=== PATIENT | female | born 1950 | race Caucasian/White ===

== ENCOUNTER → 2018-07-15 10:27 | Outpatient (CLI) | payer MEDICARE, MEDICAID, SELFPAY ==
--- NOTE | 2018-07-15 | DI.US.S_ITS ---
PROCEDURE: US CAROTID DOPPLER BI INDICATIONS: RETINAL HEMORRHAGE TECHNIQUE: Color and pulse Doppler interrogation was performed of both carotid systems, with image documentation and velocity measurements. COMPARISON: None. FINDINGS: Stenosis calculations are based on SRU (Society of Radiologists in Ultrasound) criteria. Right side: Brachial blood pressure: 182/102 mm Hg. Common carotid artery peak systolic velocity: 65 cm/sec. Internal carotid artery peak systolic velocity: 66 cm/sec. Internal carotid artery end diastolic velocity: 24 cm/sec. External carotid artery peak systolic velocity: 74 cm/sec. ICA/CCA peak systolic ratio: 1.0 Plasencia scale imaging description: Moderate scattered plaque. Percent internal carotid artery stenosis: Less than 50%. Vertebral artery: Flow direction is antegrade. Left side: Brachial blood pressure: 175/100 mm Hg. Common carotid artery peak systolic velocity: 83 cm/sec. Internal carotid artery peak systolic velocity: 102 cm/sec. Internal carotid artery end diastolic velocity: 40 cm/sec. External carotid artery peak systolic velocity: 96 cm/sec. ICA/CCA peak systolic ratio: 1.2. Plasencia scale imaging description: Moderate scattered plaque. Percent internal carotid artery stenosis: Less than 50%. Vertebral artery: Flow direction is antegrade. IMPRESSION: Less than 50% bilateral internal carotid artery stenosis. Hypertension at time of examination. Dictated by: Erwin Milian [facility] Interpreted: Mata Morales MD on 07/15/2018 at 12:12 Approved by: Mata Morales M.D. on 07/15/2018 at 14:50
== END ==
PROVIDERS: PCP Family Medicine; Visit Provider Family Medicine
DX: H35.60 Retinal hemorrhage, unspecified eye (principal); I65.23 Occlusion and stenosis of bilateral carotid arteries
CPT/HCPCS: 93880

== ENCOUNTER → 2018-11-16 09:20 | Outpatient (CLI) | payer MEDICARE, MEDICAID, SELFPAY ==
--- NOTE | 2018-11-16 | DI.RAD.S_ITS ---
PROCEDURE: XR HIP W PEL IF DONE LT MIN 4V INDICATIONS: BILATERAL HIP PAIN TECHNIQUE: AP pelvis with lateral view(s) of the bilateral hip(s), 3 views total. COMPARISON: None. FINDINGS: Bones: No fractures or dislocations. Pelvic ring appears intact. No suspicious bony lesions. Soft tissues: The visualized bowel gas pattern is normal. No suspicious soft tissue calcifications. IMPRESSION: Normal for age, source of current bilateral hip pain symptoms is not seen. Dictated by: Mata Morales M.D. on 11/16/2018 at 10:25 Approved by: Mata Morales M.D. on 11/16/2018 at 10:26
== END ==
PROVIDERS: PCP Family Medicine; Visit Provider Family Medicine
DX: M85.852 Other specified disorders of bone density and structure, left thigh (principal); Z78.0 Asymptomatic menopausal state; E07.9 Disorder of thyroid, unspecified; N28.9 Disorder of kidney and ureter, unspecified; M25.552 Pain in left hip; M25.551 Pain in right hip; Z82.62 Family history of osteoporosis; Z87.891 Personal history of nicotine dependence
CPT/HCPCS: 73522; 77080

== ENCOUNTER → 2018-12-23 09:00 | Outpatient (CLI) | payer MEDICARE, MEDICAID, SELFPAY ==
--- NOTE | 2018-12-23 | DI.US.S_ITS ---
PROCEDURE: US ABD AORTA ANEURYSM SCREEN INDICATIONS: RENAL CELL CARCINOMA TECHNIQUE: Real time scanning was performed of the aorta and iliac arteries, with image documentation. COMPARISON: None. FINDINGS: Aorta: Proximal aortic diameter measures 2.5 cm. Mid-aorta measures 1.5 cm. Distal aortic diameter is obscured by overlying bowel gas. Iliac arteries: Obscured by overlying bowel gas. IMPRESSION: Limited exam with distal aorta as well as iliacs not visualized. Proximal and mid aorta are within normal limits. Dictated by: Alva Navarrete M.D. on 12/23/2018 at 13:31 Approved by: Alva Navarrete M.D. on 12/23/2018 at 13:34
--- NOTE | 2018-12-23 | DI.RAD.S_ITS ---
PROCEDURE: XR LUMBAR SPINE 2-3V INDICATIONS: BILATERAL SCIATICA TECHNIQUE: 3 views of the lumbar spine were acquired. COMPARISON: [facility], , L-SPINE 2-3 VIEWS, 05/26/2016, 9:14. FINDINGS: Bones: 5 [id number] vertebrae are present. Again noted is grade 1 anterolisthesis of L4 on L5, unchanged from 2016 study. Chronic appearing mild anterior wedge compression deformity at L1 level is again seen also unchanged from prior study. Degenerative disc disease through all visualized lower thoracic and lumbar spine is seen more prominent at L5-S1 level.. No vertebral body compression fractures. No suspicious bony lesions. Soft tissues: Overlying bowel gas pattern is normal. No suspicious soft tissue calcifications. IMPRESSION: Degenerative disc disease throughout lumbar spine with stable grade 1 anterolisthesis of L4 on L5. No acute compression fracture. Dictated by: Guero Hwang M.D. on 12/23/2018 at 9:49 Approved by: Guero Hwang M.D. on 12/23/2018 at 9:50
--- NOTE | 2018-12-23 | DI.RAD.S_ITS ---
PROCEDURE: XR HIP W PEL IF DONE RT 2V INDICATIONS: RIGHT HIP PAIN TECHNIQUE: AP pelvis with lateral view(s) of the right hip(s). COMPARISON: [facility], CR, XR HIP W PEL IF DONE MARIOLA 3TO4V, 11/16/2018, 9:43. FINDINGS: Bones: No fractures or dislocations. Pelvic ring appears intact. Mild symmetric appearing bilateral hip joint osteoarthritis is seen with joint space narrowing and subchondral sclerosis. No evidence of avascular necrosis. No suspicious bony lesions. Soft tissues: The visualized bowel gas pattern is normal. No suspicious soft tissue calcifications. 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 Dictated by: Guero Hwang M.D. on 12/23/2018 at 9:46 Approved by: Guero Hwang M.D. on 12/23/2018 at 9:49
== END ==
PROVIDERS: PCP Family Medicine; Visit Provider Family Medicine
DX: M25.551 Pain in right hip (principal); M16.0 Bilateral primary osteoarthritis of hip; M51.16 Intervertebral disc disorders with radiculopathy, lumbar region; M43.16 Spondylolisthesis, lumbar region; G89.29 Other chronic pain; C64.9 Malignant neoplasm of unspecified kidney, except renal pelvis; Z13.6 Encounter for screening for cardiovascular disorders
CPT/HCPCS: 72100; 73502; 76706

== ENCOUNTER → 2019-03-07 09:11 | Outpatient (CLI) | payer MEDICARE, MEDICAID, SELFPAY ==
--- NOTE | 2019-03-07 | DI.MRI.S_ITS ---
PROCEDURE: MR LUMBAR SPINE WO CON INDICATIONS: Spinal stenosis, lumbar region TECHNIQUE: Noncontrast sagittal T1 spin echo and T2 fast echo, sagittal STIR, axial T1 and T2 fast spin echo through the lumbar spine. In cases with scoliosis, additional coronal T2 fast spin echo may be performed. COMPARISON: [facility], MR, L-SPINE WITHOUT CONTRAST, 06/19/2016, 10:35. FINDINGS: Image quality: Excellent. Alignment and Curvature: Trace anterolisthesis L4 on 5, stable compared to the prior study. Otherwise normal bony alignment. Bone Marrow: Small Schmorl's nodes present in the visible lower thoracic and upper lumbar spine. Mild type I Modic changes posteriorly at the L2-3 disc level, similar compared to prior. No acute vertebral body fractures. Spinal Cord: Conus medullaris terminates at the L1 -2 level. Visualized cord demonstrates normal signal and size. Paraspinous Soft Tissues: No paravertebral masses. Atrophic right kidney replaced by multiple T2 hyperintense cysts. No significant change compared to prior. T11-12: Chronic circumferential disc osteophyte results in mild to moderate central canal stenosis. T12-L1: Normal. L1-L2: Mild circumferential disc bulge with slight encroachment on the right lateral recess, similar extent compared to prior. Mild central canal stenosis, stable. L2-L3: Moderate circumferential disc bulge with slight extrusion of disc material caudal to the disc level. Extension of disc material into both neural foramina. Similar morphology compared to prior study. Moderate facet arthropathy results in mild to moderate bilateral foraminal narrowing, right worse than left, stable. Overall moderate central canal stenosis, slightly worse compared to the prior study. L3-L4: Mild circumferential disc bulge. Moderate facet hypertrophy and ligamentum flavum hypertrophy. Mild to moderate bilateral foraminal narrowing, stable.. L4-L5: Extensive bilateral facet arthropathy/ligamentum flavum hypertrophy. Moderate posterior disc bulge and disc uncovering secondary to anterolisthesis. This results in severe central canal stenosis, similar extent compared to the prior study. Moderate right, and severe left foraminal narrowing are unchanged. L5-S1: Disc height loss and endplate spurring are present. Moderate posterior disc osteophyte complex and moderate facet hypertrophy are unchanged. There is encroachment on both lateral recesses, left worse than right. Moderate to severe bilateral foraminal narrowing are present. IMPRESSION: 1. Slight progression of central canal stenosis at the L2-3 level due to disc bulge and ligamentum flavum hypertrophy. 2. Stable severe central canal stenosis at L4-5 and stable severe left foraminal narrowing. 3. Moderate to severe bilateral foraminal narrowing in the lower lumbar spine secondary to facet hypertrophy and disc osteophyte complex (particularly at L5-S1). 4. Right renal atrophy and cystic change, chronic. Dictated by: Marjorie العراقي M.D. on 03/07/2019 at 12:20 Approved by: Marjorie العراقي M.D. on 03/07/2019 at 12:42
== END ==
PROVIDERS: PCP Family Medicine; Visit Provider Family Medicine
DX: M48.062 Spinal stenosis, lumbar region with neurogenic claudication (principal); M48.07 Spinal stenosis, lumbosacral region; N26.1 Atrophy of kidney (terminal)
CPT/HCPCS: 72148

== ENCOUNTER → 2019-07-11 10:46 | Outpatient (CLI) | payer MEDICARE, MEDICAID, SELFPAY ==
--- NOTE | 2019-07-11 | DI.MG.S_ITS ---
BILATERAL DIGITAL SCREENING MAMMOGRAM 3D/2D WITH CAD: 07/11/2019 CLINICAL: Routine screening. Family history of breast cancer. Comparison is made to exams dated: 02/11/2010 mammogram, 05/12/2008 mammogram, 10/17/2005 mammogram - [facility], and 02/16/2004 mammogram - [facility]. The tissue of both breasts is predominantly fatty. Current study was also evaluated with a Computer Aided Detection (CAD) system. No significant masses, calcifications, or other findings are seen in either breast. There has been no significant interval change. IMPRESSION: NEGATIVE There is no mammographic evidence of malignancy. A 1 year screening mammogram is recommended. This exam was interpreted at Station ID: [id number]. NOTE: For mammograms, a report in lay terms will be sent to the patient. Approximately 15% of breast malignancies will not be visualized mammographically. In the management of a palpable breast mass, a negative mammogram must not discourage biopsy of a clinically suspicious lesion. Electronically Signed By: Tejas burt/reginaldo:07/11/2019 12:52:30 letter sent: Normal Exam ACR BI-RADS Category 1: Negative 3341F
== END ==
PROVIDERS: PCP Family Medicine; Visit Provider Family Medicine
DX: Z12.31 Encounter for screening mammogram for malignant neoplasm of breast (principal); Z80.3 Family history of malignant neoplasm of breast
CPT/HCPCS: 77063; 77067

== ENCOUNTER → 2019-12-08 09:17 | Outpatient (CLI) | payer MEDICARE, MEDICAID, SELFPAY ==
--- NOTE | 2019-12-08 | DI.US.S_ITS ---
PROCEDURE: US ABDOMEN COMPLETE INDICATIONS: ELEVATED LFTS TECHNIQUE: Real-time scanning was performed of the abdominal and retroperitoneal organs, with image documentation. COMPARISON: [facility], RG, CT ABDOMEN/PELVIS WITH CONTRAST, 07/09/2006, 12:52. [facility], CT, ABDOMEN W&WO CONTRAST, 06/21/2015, 11:17. FINDINGS: Liver: The liver demonstrates normal size the liver demonstrates diffuse heterogeneity, without a focal abnormality seen on these images. Gallbladder: No findings of gallstones or sludge are seen. The gallbladder wall is not thickened, measuring 3 mm or less. No specific pericholecystic fluid is seen. The sonographic Rodríguez sign is negative. Biliary ducts: Intrahepatic bile ducts are non-dilated. Extrahepatic bile duct caliber measures 4 mm. Normal is 6-7 mm or less in diameter, or 10 mm or less post-cholecystectomy. Pancreas: Visualized portions of the pancreas are sonographically normal. Spleen: Spleen is normal in size and homogeneous in echotexture. Kidneys: The right kidney is hypoplastic and not seen on these images. The left kidney measures 10.6 cm in length and demonstrates normal cortical thickness. There is no hydronephrosis. No stones or solid left kidney lesions are seen. Aorta: Visualized aorta is normal in caliber at less than 3 cm. Iliacs: Proximal common iliac arteries are normal in caliber at less than 2.5 cm. IVC: Intrahepatic inferior vena cava is patent. Miscellaneous: No free abdominal fluid. IMPRESSION: Heterogeneous liver, which is consistent with cirrhosis. No focal liver lesions are seen. If there is strong clinical concern for a renal mass, please consider a dedicated liver protocol MRI (without and with contrast) for further evaluation (assuming that there is no contraindication). The previously identified dysplastic right kidney not seen on these images. Dictated by: Moe Morillo M.D. on 12/08/2019 at 12:56 Approved by: Moe Morillo M.D. on 12/08/2019 at 12:59
== END ==
PROVIDERS: PCP Family Medicine; Referring Provider Family Medicine; Visit Provider Family Medicine
DX: R79.89 Other specified abnormal findings of blood chemistry (principal)
CPT/HCPCS: 76700

== ENCOUNTER 2020-01-18 08:58 | Outpatient (CLI) | payer MEDICARE, MEDICAID, SELFPAY ==
[2020-01-18] VITALS (18 sets, daily range): BP systolic 120–179; BP diastolic 63–93; PULSE 56–77; RESP 14–18; TEMP 36.2–37.3; O2SAT 94–100; BMI 42.6
--- NOTE | 2020-01-18 | DI.US.S_ITS ---
PROCEDURE: US BIOPSY LIVER Ultrasound-guided liver biopsy with sedation analgesia for 15 minutes. INDICATIONS: CIRRHOSIS; LIVER BIOPSY TECHNIQUE: The indications, alternatives, benefits, risks, and complications of the procedure were explained to the patient. Written informed consent was obtained and placed in the chart. Continuous EKG and hemodynamic monitoring was started by trained personnel. Real-time sonography was utilized to choose the site for percutaneous hepatic biopsy. The skin was prepped and draped in the usual sterile fashion. 1% lidocaine was infiltrated down to the hepatic capsule. A coaxial needle was then advanced into the liver under direct sonographic visualization. A biopsy apparatus was then utilized, and core biopsies were obtained. The needle was then withdrawn; a bandage and overlying weight were applied to the biopsy site. COMPARISON: None. FINDINGS: Biopsy site(s): Left lobe Needle: Eterniam biopsy needle set. Number of passes: 3 Medications: 1% lidocaine for local anaesthesia. IV Versed and Fentanyl for conscious sedation for 15 minutes (see nursing record). Complications: None. IMPRESSION: Successful ultrasound-guided liver biopsy, with pathology results pending. Dictated by: Roland Vega M.D. on 01/18/2020 at 15:19 Approved by: Roland Vega M.D. on 01/18/2020 at 15:22
--- NOTE | 2020-01-18 09:54 | SUR.PREOP ---
Labs ordered as per Tamera per Dr. Vega.
[2020-01-18 10:12] LABS: Hematocrit 45.1 % (36-46); Platelet Count 285 X10^3/uL (150-400); Prothrombin Time 11.7 SECONDS (10.1-12.7)
[2020-01-18] MEDS: fentaNYL 100 MCG/2 ML INJ 50 MCG IV ×3 (10:40→13:10)
[2020-01-18] MEDS: MIDAZOLAM 2 MG/2 ML VIAL 1 MG IV (10:40)
--- NOTE | 2020-01-18 11:15 | PC.NURSE ---
Report and care handed off to Tonya GILBERT in PACU.
--- NOTE | 2020-01-18 11:29 | SUR.PHASEII ---
Pt's pain reported to Dr. Vega. Dr. Vega stated pt should have a Cat sScan and that he would call to order. )2 sats 92-93% so pt placed on nasal canula 2/l and sats up to 98. Pt stated she could not take a deep breath when asked.
--- NOTE | 2020-01-18 11:44 | SUR.PHASEII ---
Pain unchanged, lab ordered per Dr. Vega.
[2020-01-18 11:56] LABS: Blood Urea Nitrogen 10 mg/dL (7-17)
--- NOTE | 2020-01-18 12:15 | SUR.PHASEII ---
Addendum entered by Nahomy Rodriguez R.N. 01/18/20 16:12: H/H drawn at 1430, results to Dr Vega. Orthstatic VS ordered and reported. Dr Vega at . Pt is stable to be discharge. Medicated with Vicodin PO x2 for pain 04/11. Escorted to ED entrance via wc in stable condition. Addendum entered by Nahomy Rodriguez R.N. 01/18/20 13:19: Addendum entered by Nahomy Rodriguez R.N. 01/18/20 13:17: 1240: pt returned to unit via stretcher, monitoring resumed per MD orders. Taking liquids. Addendum entered by Nahomy Rodriguez R.N. 01/18/20 13:17: 1220: pt off unit for CT. Addendum entered by Nahomy Rodriguez R.N. 01/18/20 12:20: Ortho static VS: layin/72, 59,100%; Sittin/88,73,100%; Standin/93,56,100% Results to Dr Vega. Original Note: Dr Vega returned call regarding pts elevated pain and difficulty taking a deep breath. CT w/contrast was order by MD, verbal order received and entered for Orthostatic VS, 50mcg of fentanyl IV now,and 1-2 tabs of vicodin PO to follow if pain continues.
[2020-01-18 12:23] LABS: BUN Creatinine Ratio 12.5 (6-22); Estimated Glomerular Filt Rate > 60.0 mL/min (>60)
--- NOTE | 2020-01-18 12:27 | DI.CT.S_ITS ---
PROCEDURE: CT ABDOMEN W CON INDICATIONS: RIGHT ABDOMINAL PAIN POST LIVER BIOPSY TECHNIQUE: After the administration of intravenous contrast, 5 mm thick sections acquired from the diaphragm to the iliac crests. 5 mm coronal and sagittal reformats were performed. For radiation dose reduction, the following was used: automated exposure control, adjustment of mA and/or kV according to patient size. COMPARISON: None. FINDINGS: Image quality: Excellent. Lung bases: Lung bases are clear. Heart size is normal. Solid organs: There is scattered bubbles of intraperitoneal gas, probably related to the recent liver biopsy performed earlier same day. There is also trace fluid measuring approximately 1 cm seen image 15/2, adjacent to the anterior margin of the dome of the liver, just under the diaphragm. This is also probably related to the recent biopsy. No active extravasation of contrast is seen to suggest ongoing bleeding. Cirrhotic contour and margin of the liver. Gallbladder negative. Biliary system is non dilated. Pancreas enhances normally. Spleen is normal in size and enhancement. No adrenal nodules. Marked right renal atrophy and scarring. Peritoneum and bowel: Bowel loops demonstrate normal wall thickness and caliber. Elsewhere, no free fluid. Nodes and vessels: No retroperitoneal or mesenteric adenopathy by size criteria. Aorta and inferior vena cava are normal in size. Scattered vascular calcifications seen in the aorta. Miscellaneous: No ventral hernias. IMPRESSION: Few scattered areas of intraperitoneal gas bubbles, presumably related to ultrasound guided liver biopsy performed earlier same day. There is also a trace amount of free fluid or blood along the anterior margin of the liver dome, and adjacent to the right job-diaphragm. No active extravasation of contrast identified. No large hematoma seen. Dictated by: Roland Vega M.D. on 01/18/2020 at 12:58 Approved by: Roland Vega M.D. on 01/18/2020 at 13:05
[2020-01-18 15:32] LABS: Hematocrit 41.1 % (36-46); Hemoglobin 13.6 g/dL (12.0-16.0)
[2020-01-18] MEDS: HYDROCODONE/ACET 5/325 TABLET 2 TAB PO (15:56)
== END 2020-01-18 16:11 | disposition home or self-care (01) ==
PROVIDERS: Radiology Diagnostic Radiology; PCP Family Medicine; Referring Provider Physician Assistant; Visit Provider Physician Assistant
DX: R94.5 Abnormal results of liver function studies (principal); R76.8 Other specified abnormal immunological findings in serum; R10.9 Unspecified abdominal pain
CPT/HCPCS: 36415; 47000; 74160; 76942; 82565; 84520; 85014; 85018; 85049; 85610; J2250; J3010; Q9967

== ENCOUNTER → 2020-11-29 10:38 | Outpatient (CLI) | payer MEDICARE, MEDICAID, SELFPAY ==
--- NOTE | 2020-11-29 | DI.US.S_ITS ---
PROCEDURE: US PERIPH VENOUS LOW EXTREM RT INDICATIONS: ANKLE EDEMA TECHNIQUE: Real-time imaging, as well as color and pulse Doppler interrogation, were performed of the lower extremity deep veins from the inguinal ligament to the popliteal fossa. COMPARISON: None. FINDINGS: The common femoral, femoral and popliteal veins are normally compressible, and free of intraluminal thrombus. Color and pulse Doppler demonstrate normal phasic intraluminal flow. There is normal augmentation response to distal compression maneuver. IMPRESSION: Negative for deep venous thrombosis of the right lower extremity. Dictated by: Roger Hartley M.D. on 11/29/2020 at 11:48 Approved by: Roger Hartley M.D. on 11/29/2020 at 11:49
== END ==
PROVIDERS: PCP Family Medicine; Referring Provider Family Medicine; Visit Provider Family Medicine
DX: R60.0 Localized edema (principal)
CPT/HCPCS: 93971

== ENCOUNTER → 2021-02-07 10:20 | Outpatient (CLI) | payer MEDICARE, MEDICAID, SELFPAY ==
[2021-02-07 19:16] LABS: Prothrombin Time 11.4 SECONDS (10.1-12.7)
[2021-02-07 19:31] LABS: Alanine Aminotransferase 28 IU/L (<35); Albumin 3.6 g/dL (3.5-5.0); Albumin Globulin Ratio 1.2 (1.0-2.8); Alkaline Phosphatase 93 U/L (38-126); Aspartate Aminotransferase 31 IU/L (14-36); BUN Creatinine Ratio 22.3 (6-22); Bilirubin Total 0.5 mg/dL (0.2-1.3); Blood Urea Nitrogen 21 mg/dL (7-17); Calcium 9.4 mg/dL (8.4-10.2); Carbon Dioxide 30 mmol/L (22-32); Chloride 103 mmol/L (98-107); Estimated Glomerular Filt Rate 58.7 mL/min (>60); Glucose 89 mg/dL (80-110); HEMOLYSIS < 15 (0-50); Potassium 4.2 mmol/L (3.4-5.1); Sodium 138 mmol/L (137-145); Total Protein 6.6 g/dL (6.3-8.2)
[2021-02-09 01:03] LABS: HBsAg Screen Negative (Negative); Hepatitis A Antibody IgM Negative (Negative); Hepatitis B Core Antibody IgM Negative (Negative); Hepatitis C Antibody <0.1 s/co ratio (0.0-0.9)
[2021-02-11 20:33] LABS: QuantiFERON Mitogen Value >10.00 IU/mL (.); QuantiFERON Nil Value 0.02 IU/mL (.); QuantiFERON TB Gold Plus Negative (Negative); QuantiFERON TB1 Ag Value 0.03 IU/mL (.); QuantiFERON TB2 Ag Value 0.03 IU/mL (.)
[2021-02-14 10:10] LABS: TPMT Activity 16.7 (.)
== END ==
PROVIDERS: PCP Family Medicine; Visit Provider Physician Assistant
DX: K75.4 Autoimmune hepatitis (principal); K75.9 Inflammatory liver disease, unspecified; Z79.899 Other long term (current) drug therapy
CPT/HCPCS: 80053; 80074; 82657; 85610; 86480

== ENCOUNTER → 2021-02-13 16:40 | Outpatient (CLI) | payer MEDICARE, MEDICAID, SELFPAY | PROVIDERS: PCP Physician Assistant Medical; Visit Provider Physician Assistant Medical | DX: N39.0 Urinary tract infection, site not specified (principal) | CPT/HCPCS: 87086 ==

== ENCOUNTER → 2021-02-18 09:14 | Outpatient (CLI) | payer MEDICARE, MEDICAID, SELFPAY ==
--- NOTE | 2021-02-18 09:16 | DI.ECHO.S_ITS ---
[facility] +---------+ : : [address] : : : : [id number] : : : : Phone: [phone]+ Echocardiogram Report + + :Name: SUHA YOUNG Study Date: 02/18/2021 Height: 58.5 in: :[facility] ReadingLocation: Weight: 182 lb : : Gender: Female BSA: 1.8 m2 : :: 1950 Age: 70 yrs BP: 131/64 mmHg: :Reason For Study: EDEMA : :Ordering Physician: SHARITA, : :MARLIN Quijano Performed By: Kaylee Quiñones : :Referring: PAULO DANIEL : + + Interpretation Summary Normal left ventricle size with ejection fraction 60-65%. The aortic valve is mildly calcified. The ascending aorta is mildly enlarged. Procedure: A two-dimensional transthoracic echocardiogram with color flow and Doppler was performed. The study quality was technically adequate. There is no prior echocardiogram noted for this patient. The patient was in sinus rhythm with heart rates between 65-70 bpm during the exam. Left Ventricle: The left ventricle is normal in size and wall thickness. The ejection fraction is estimated to be 60-65%. There are no focal wall motion abnormalities. Diastolic parameters suggest probable normal left ventricular diastolic function and normal filling pressures. Right Ventricle: The right ventricle is normal in size and function. Atria: The left atrial size is normal. Right atrial size is normal. There is no Doppler evidence for an interatrial shunt. Mitral Valve: The mitral valve is normal in structure and function. There is trace mitral regurgitation. Aortic Valve: The aortic valve opens well. The aortic valve is mildly calcified. There is no aortic valve stenosis. No aortic regurgitation is present. Tricuspid Valve: The tricuspid valve is normal in structure and function. There is trace tricuspid regurgitation. Pulmonary artery pressures cannot be estimated because of the lack of a measurable TR jet velocity but the IVC suggests a CVP of around 3 mmHg. Pulmonic Valve: The pulmonic valve is not well seen, but is grossly normal. There is no pulmonic valvular regurgitation. Great Vessels: The aortic root is normal size. The ascending aorta is mildly enlarged. The IVC is of normal diameter and collapses greater than 50% with a sniff. This suggests a low right atrial pressure of 3 mm Hg. Pericardium/ Pleura There is no pericardial effusion. There is no pleural effusion. MMode/2D Measurements & Calculations LVIDd: 4.8 cm LVOT diam: 1.7 cm LVIDs: 3.2 cm Ao root diam: 2.7 cm FS: 33.9 % asc Aorta Diam: 3.7 cm EPSS: 0.66 cm Ao Arch Diam (Prox Trans): 2.4 cm IVSd: 1.2 cm LVPWd: 0.90 cm LV whaley. diameter/BSA (cm/m^2): 2.7 LV sys. diameter/BSA (cm/m^2): 1.8 LA A2 area: 18.5 cm2 RA long axis: 4.5 cm LA A4 area: 14.9 cm2 RA area: 11.3 cm2 LA length (vol): 5.3 cm RA vol: 24.2 ml LA vol: 44.6 ml RA : 13.7 ml/m2 LA vol index: 25.3 ml/m2 IVC diam: 1.4 cm RVD1 (basal): 3.1 cm TAPSE: 1.9 cm Doppler Measurements & Calculations Ao V2 max: 184.7 cm/sec LVOT Max Yaya: 111.1 cm/sec Ao V2 mean: 124.6 cm/sec LV V1 max P.9 mmHg Ao max P.6 mmHg LV V1 VTI: 23.6 cm Ao mean P.2 mmHg NICOLETTE(I,D): 1.4 cm2 Ao V2 VTI: 38.4 cm NICOLETTE(V,D): 1.4 cm2 sev ratio: 0.61 NICOLETTE indexed to BSA (cm^2/m^2): 0.82 MV E max yaya: 77.8 cm/sec PA V2 max: 97.6 cm/sec MV A max yaya: 98.4 cm/sec PA V2 mean: 67.1 cm/sec MV E/A: 0.79 PA mean P.9 mmHg Med Peak E' Yaya: 6.0 cm/sec PA pr(Accel): 53.3 mmHg E/E' med: 13.0 Lat Peak E' Yaya: 8.9 cm/sec E/E' lat: 8.7 E/e' average: 10.8 MV dec time: 0.22 sec SV([facility]): 55.3 ml Electronically signed by: Mamadou Alegria on Reading Physician:02/18/2021 12:33 PM
== END ==
PROVIDERS: PCP Physician Assistant Medical; Referring Provider Family Medicine; Visit Provider Family Medicine
DX: R60.9 Edema, unspecified (principal); I77.89 Other specified disorders of arteries and arterioles
CPT/HCPCS: 93306

== ENCOUNTER → 2021-02-28 11:35 | Outpatient (CLI) | payer MEDICARE, MEDICAID, SELFPAY | PROVIDERS: PCP Physician Assistant Medical; Visit Provider Physician Assistant Medical | DX: R31.9 Hematuria, unspecified (principal) | CPT/HCPCS: 87086 ==

== ENCOUNTER → 2021-03-06 08:43 | Outpatient (CLI) | payer MEDICARE, MEDICAID, SELFPAY ==
[2021-03-06 19:15] LABS: Alanine Aminotransferase 22 IU/L (<35); Albumin 3.6 g/dL (3.5-5.0); Albumin Globulin Ratio 1.3 (1.0-2.8); Alkaline Phosphatase 84 U/L (38-126); Aspartate Aminotransferase 30 IU/L (14-36); BUN Creatinine Ratio 18.5 (6-22); Bilirubin Total 0.3 mg/dL (0.2-1.3); Blood Urea Nitrogen 17 mg/dL (7-17); Calcium 9.2 mg/dL (8.4-10.2); Carbon Dioxide 30 mmol/L (22-32); Chloride 104 mmol/L (98-107); Estimated Glomerular Filt Rate > 60.0 mL/min (>60); Globulin 2.8 g/dL (1.7-4.1); Glucose 90 mg/dL (80-110); HEMOLYSIS < 15 (0-50); Potassium 4.3 mmol/L (3.4-5.1); Sodium 140 mmol/L (137-145); Total Protein 6.4 g/dL (6.3-8.2)
== END ==
PROVIDERS: Physician Assistant; PCP Physician Assistant Medical
DX: K75.4 Autoimmune hepatitis (principal)
CPT/HCPCS: 80053

== ENCOUNTER → 2021-04-15 09:13 | Outpatient (CLI) | payer MEDICARE, MEDICAID, SELFPAY ==
[2021-04-15 20:20] LABS: Alanine Aminotransferase 42 IU/L (<35); Albumin 3.6 g/dL (3.5-5.0); Albumin Globulin Ratio 1.3 (1.0-2.8); Alkaline Phosphatase 76 U/L (38-126); Aspartate Aminotransferase 43 IU/L (14-36); BUN Creatinine Ratio 18.5 (6-22); Bilirubin Total 0.5 mg/dL (0.2-1.3); Blood Urea Nitrogen 17 mg/dL (7-17); Calcium 9.1 mg/dL (8.4-10.2); Carbon Dioxide 27 mmol/L (22-32); Chloride 105 mmol/L (98-107); Estimated Glomerular Filt Rate > 60.0 mL/min (>60); Globulin 2.8 g/dL (1.7-4.1); Glucose 89 mg/dL (80-110); HEMOLYSIS < 15 (0-50); Potassium 4.2 mmol/L (3.4-5.1); Sodium 138 mmol/L (137-145); Total Protein 6.4 g/dL (6.3-8.2)
[2021-04-15 20:46] LABS: TSH w/ Reflex to FT4 0.88 uIU/mL (0.47-4.68)
== END ==
PROVIDERS: Physician Assistant; PCP Physician Assistant Medical; Visit Provider Physician Assistant Medical
DX: E03.9 Hypothyroidism, unspecified (principal); K75.4 Autoimmune hepatitis
CPT/HCPCS: 80053; 84443

== ENCOUNTER → 2021-05-29 09:51 | Outpatient (CLI) | payer MEDICARE, MEDICAID, SELFPAY ==
[2021-05-29 19:30] LABS: Add Manual Diff / Slide Review NO; Basophils Absolute Auto 100 /uL (0-100); Basophils Percent Auto 1.2 % (0-2); Eosinophils Absolute Auto 100 /uL (0-450); Eosinophils Percent Auto 1.8 % (2-4); Hematocrit 41.3 % (36-46); Hemoglobin 13.6 g/dL (12.0-16.0); Lymphocytes Absolute Auto 2300 /uL (1100-4500); Lymphocytes Percent Auto 33.1 % (25-40); Mean Corpuscular HGB Conc 32.8 % (30-36); Mean Corpuscular Hemoglobin 30.4 PG (26-34); Mean Corpuscular Volume 92.5 fL (80-100); Monocytes Absolute Auto 400 /uL (0-900); Monocytes Percent Auto 6.4 % (3-14); Neutrophils Absolute Auto 4000 /uL (1500-7000); Neutrophils Percent Auto 57.5 % (50-75); Platelet Count 201 X10^3/uL (150-400); Red Blood Cell Count 4.47 X10^6/uL (4.0-5.2); White Blood Cell Count 6.9 X10^3/uL (4.5-11.0)
[2021-05-29 19:39] LABS: Alanine Aminotransferase 31 IU/L (<35); Albumin 3.6 g/dL (3.5-5.0); Albumin Globulin Ratio 1.2 (1.0-2.8); Alkaline Phosphatase 77 U/L (38-126); Aspartate Aminotransferase 38 IU/L (14-36); BUN Creatinine Ratio 19.1 (6-22); Bilirubin Total 0.4 mg/dL (0.2-1.3); Blood Urea Nitrogen 17 mg/dL (7-17); C-Reactive Protein Quant 0.9 mg/dL (<1.0); Calcium 9.2 mg/dL (8.4-10.2); Carbon Dioxide 28 mmol/L (22-32); Chloride 106 mmol/L (98-107); Estimated Glomerular Filt Rate > 60.0 mL/min (>60); Globulin 2.9 g/dL (1.7-4.1); Glucose 93 mg/dL (80-110); HEMOLYSIS 15 (0-50); Potassium 3.9 mmol/L (3.4-5.1); Sodium 140 mmol/L (137-145); Total Protein 6.5 g/dL (6.3-8.2)
[2021-05-29 20:05] LABS: Erythrocyte Sedimentation Rate 6 MM/HR (0-20)
== END ==
PROVIDERS: PCP Physician Assistant Medical; Visit Provider Registered Nurse
DX: R31.9 Hematuria, unspecified (principal); I10 Essential (primary) hypertension
CPT/HCPCS: 80053; 85025; 85651; 86140

== ENCOUNTER → 2021-08-28 14:12 | Outpatient (CLI) | payer MEDICARE, MEDICAID, SELFPAY ==
[2021-08-28 21:33] LABS: COVID19 - ORCAS (NP or Nasal) Negative (Negative)
== END ==
PROVIDERS: PCP Physician Assistant Medical; Visit Provider Physician Assistant Medical
DX: Z20.822 Contact with and (suspected) exposure to COVID-19 (principal); D84.9 Immunodeficiency, unspecified
CPT/HCPCS: U0003

== ENCOUNTER → 2021-10-07 10:28 | Outpatient (CLI) | payer MEDICARE, MEDICAID, SELFPAY ==
--- NOTE | 2021-10-07 | DI.MG.S_ITS ---
BILATERAL DIGITAL SCREENING MAMMOGRAM 3D/2D WITH CAD: 10/07/2021 CLINICAL: Routine screening. Family history of breast cancer. Comparison is made to exams dated: 07/11/2019 mammogram - [facility], 02/11/2010 mammogram, and 05/12/2008 mammogram - [facility]. There are scattered fibroglandular elements in both breasts. Current study was also evaluated with a Computer Aided Detection (CAD) system. No significant masses, calcifications, or other findings are seen in either breast. There has been no significant interval change. IMPRESSION: NEGATIVE There is no mammographic evidence of malignancy. A 1 year screening mammogram is recommended. This exam was interpreted at Station ID: [id number]. NOTE: For mammograms, a report in lay terms will be sent to the patient. Approximately 15% of breast malignancies will not be visualized mammographically. In the management of a palpable breast mass, a negative mammogram must not discourage biopsy of a clinically suspicious lesion. Electronically Signed By: Roger bran/reginaldo:10/07/2021 12:37:46 letter sent: Normal Exam ACR BI-RADS Category 1: Negative [id number]
== END ==
PROVIDERS: PCP Family Medicine; Referring Provider Physician Assistant Medical; Visit Provider Physician Assistant Medical
DX: Z12.31 Encounter for screening mammogram for malignant neoplasm of breast (principal); Z80.3 Family history of malignant neoplasm of breast
CPT/HCPCS: 77063; 77067

== ENCOUNTER 2022-02-06 11:35 | Emergency (ER) | payer MEDICARE, MEDICAID, SELFPAY ==
[2022-02-06] VITALS (21 sets, daily range): BP systolic 119–217; BP diastolic 56–94; PULSE 64–83; RESP 18–24; TEMP 37.2; O2SAT 93–97; BMI 40.4
[2022-02-06] MEDS: PANTOPRAZOLE 40 MG VIAL IV (12:24)
[2022-02-06 12:29] LABS: Appearance Urine UA CLEAR; Bilirubin Urine UA NEGATIVE (NEGATIVE); Color Urine UA YELLOW; Glucose Urine UA NEGATIVE (Negative); Ketones Urine UA NEGATIVE (NEGATIVE); Leukocyte Esterase Urine UA 1+ (NEGATIVE); Nitrite Urine UA NEGATIVE (Negative); Occult Blood Urine UA 3+ (Negative); Protein Urine UA NEGATIVE (Negative); Specific Gravity Urine UA <=1.005 (1.000-1.035); Urobilinogen Urine UA 0.2 E.U./dL (0.2)
[2022-02-06 12:33] LABS: pH Urine UA 5.5 (4.5-8.0)
[2022-02-06 12:40] LABS: Bacteria Urine Few (2-10); RBC Urine 1-5/HPF (0-5/HPF); Squamous Epithelial Cell Urine 0-1 /HPF (0-5/HPF); WBC Urine 1-5/HPF (0-5/HPF)
[2022-02-06 12:41] LABS: Culture Indicated Urine Specimen Cultured
[2022-02-06 12:45] LABS: Prothrombin Time 11.2 SECONDS (10.1-12.7)
[2022-02-06 12:47] LABS: Add Manual Diff / Slide Review NO; Basophils Absolute Auto 100 /uL (0-100); Eosinophils Absolute Auto 100 /uL (0-450); Eosinophils Percent Auto 1.1 % (2-4); Hematocrit 43.5 % (36-46); Hemoglobin 14.5 g/dL (12.0-16.0); Lymphocytes Absolute Auto 2800 /uL (1100-4500); Lymphocytes Percent Auto 26.7 % (25-40); Mean Corpuscular HGB Conc 33.2 % (30-36); Mean Corpuscular Hemoglobin 29.7 PG (26-34); Mean Corpuscular Volume 89.4 fL (80-100); Monocytes Absolute Auto 900 /uL (0-900); Monocytes Percent Auto 8.5 % (3-14); Neutrophils Absolute Auto 6600 /uL (1500-7000); Neutrophils Percent Auto 62.7 % (50-75); PTT Partial Thromboplastin Tim 27 SECONDS (26.4-36.2); Platelet Count 262 X10^3/uL (150-400); Red Blood Cell Count 4.87 X10^6/uL (4.0-5.2); Red Cell Distribution Width 13.9 % (11.6-14.8); White Blood Cell Count 10.5 X10^3/uL (4.5-11.0)
[2022-02-06 12:51] LABS: Alanine Aminotransferase 19 IU/L (<35); Albumin Globulin Ratio 1.1 (1.0-2.8); Alkaline Phosphatase 73 U/L (38-126); Aspartate Aminotransferase 25 IU/L (14-36); Bilirubin Total 0.4 mg/dL (0.2-1.3); Blood Urea Nitrogen 12 mg/dL (7-17); Calcium 9.1 mg/dL (8.4-10.2); Carbon Dioxide 29 mmol/L (22-32); Chloride 106 mmol/L (98-107); Estimated Glomerular Filt Rate > 60.0 mL/min (>60); Globulin 3.5 g/dL (1.7-4.1); Glucose 102 mg/dL (80-110); HEMOLYSIS < 15 (0-50); Potassium 3.6 mmol/L (3.4-5.1); Sodium 141 mmol/L (137-145); Total Protein 7.5 g/dL (6.3-8.2)
[2022-02-06 12:52] LABS: Lactate (Lactic Acid) 1.7 mmol/L (0.7-2.1)
--- NOTE | 2022-02-06 12:52 | ED_ITS ---
HPI - GI Bleed General Chief complaint: Urogenital-Female Stated complaint: Rectal and vaginal bleeding Time Seen by Provider: 02/06/22 11:58 Source: patient and EMS Mode of arrival: EMS History of Present Illness HPI Narrative: Patient is a 71-year-old female with history of autoimmune hepatitis on prednisone who presents with rectal and vaginal bleeding. She is not on any anti-platelet or anticoagulation medication. She says it started yesterday. She can noticed when she wiped. Today she needed to use thin panty liners for the blood. She says she has filled 7 of them completely. She is worried that she might have vaginal bleeding as well because with bleeding in the front of the past. She denies any painful or frequent urination. She denies any hematuria. She is having some mild lower abdominal pain. She says she feels dizzy and lightheaded but has not fallen. Denies any fever or chills. She denies feeling toilet bowl full of blood Related Data Home Medications Medication Instructions Recorded Confirmed cholecalciferol (vitamin D3) 50 50 mcg PO DAILY 01/18/20 06/18/21 mcg (2,000 unit) capsule (Vitamin D3) prednisone 5 mg tablet 10 mg PO DAILY tab 02/13/21 06/18/21 simvastatin 20 mg tablet (Zocor) 5 mg PO BEDTIME tab 02/13/21 06/18/21 betamethasone, augmented 0.05 % 1 applic TOPICAL DAILY PRN 02/26/21 06/18/21 topical ointment hydroxychloroquine 200 mg tablet 200 mg PO BID 03/21/21 06/18/21 Previous Rx's Medication Instructions Recorded levothyroxine 88 mcg tablet 88 mcg PO DAILY #14 tab 04/08/21 hydrocortisone acetate 25 mg 25 mg IN BEDTIME #12 ea 02/06/22 rectal suppository (Anusol-HC) nitrofurantoin 100 mg PO Q12H 5 Days #10 cap 02/06/22 monohydrate/macrocrystals 100 mg capsule (Macrobid) Allergies Allergy/AdvReac Type Severity Reaction Status Date / Time Sulfa (Sulfonamide Allergy Severe Hives Verified 03/21/21 08:03 Antibiotics) gabapentin Allergy Intermediate rash Verified 03/21/21 08:03 Penicillins Allergy Intermediate Hives Verified 03/21/21 08:03 Review of Systems Review of Systems Narrative: GENERAL: Denies chills, fatigue, malaise, fever, sweats, travel HEENT: Denies sinus pain, ear pain, sore throat, difficulty swallowing, neck pain RESPIRATORY: Denies dyspnea, cough, wheezing, hemoptysis, sputum. CARDIOVASCULAR: Denies chest pain, palpitations, orthopnea, edema GASTROINTESTINAL: See HPI : Denies dysuria, frequency, incontinence, hematuria, urinary retention, flank pain. MUSCULOSKELETAL: Denies weakness, joint pain, or bony pain SKIN: No rash, no erythema, no pruritus NEUROLOGIC: Denies weakness, dizziness, headache, numbness, change in speech, confusion PSYCHIATRIC: No concerning psychosocial issues. 12 point review of systems is negative except for those stated above and HPI Patient History Social History household members: other Smoking Status: Former smoker alcohol intake: former additional social history: QUIT DATE SMOKIN11/02/07 Smoking Status: Former smoker Substance Use Type: other Exam Initial Vital Signs Initial Vital Signs: Vital Signs Temperature 99.0 F 02/06/22 12:03 Pulse Rate 76 02/06/22 12:03 Respiratory Rate 18 02/06/22 12:03 Blood Pressure 176/88 H 02/06/22 12:03 Pulse Oximetry 97 02/06/22 12:03 GENERAL: Alert slightly anxious 71-year-old female in no acute distress. HEENT: Head atraumatic,EOMI, pupils reactive, face symmetric, moist mucous membranes CARDIOVASCULAR: Regular rate and rhythm without murmurs, rubs or gallops. RESPIRATORY: Breath sounds equal bilaterally, no wheezes rales or rhonchi. ABDOMEN: Soft, nontender. Normoactive bowel sounds all 4 quadrants. No guarding or rebound. RECTAL: [Hemorrhoid noted at the 10 o'clock position nontender she does have some gross blood, Hemoccult is positive VAGINA: Normal external exam no obvious bleeding however no with speculum exam : No CVA tenderness EXTREMITIES: Normal range of motion, no clubbing or edema. Neurovascularly intact NEUROLOGICAL: Alert and oriented x4.Normal gait and speech. SKIN: Warm, dry, no laceration, no petechiae, no rashes or lesions. Course Orders Ordered: Discontinued Medications Labetalol HCl (Labetalol 20 Mg/4 Ml Syringe) 10 mg IV NOW ONE Stop: 02/06/22 14:00 Last Admin: 02/06/22 14:10 Dose: 10 mg Documented by: EDIS Pantoprazole Sodium (Pantoprazole 40 Mg Vial) 40 mg IV NOW ONE Stop: 02/06/22 11:59 Last Admin: 02/06/22 12:24 Dose: 40 mg Documented by: EDIS Vital Signs Vital signs: Vital Signs - 8 hr 02/06/22 12:03 02/06/22 12:04 02/06/22 12:05 Temperature 99.0 F Pulse Rate 76 73 71 Respiratory Rate 18 21 20 Blood Pressure 176/88 H 210/85 H Pulse Oximetry 97 94 95 02/06/22 12:10 02/06/22 12:14 02/06/22 12:30 Temperature Pulse Rate 72 70 83 Respiratory Rate 20 18 Blood Pressure 176/86 H 217/94 H Pulse Oximetry 94 95 94 02/06/22 12:31 02/06/22 13:00 02/06/22 13:30 Temperature Pulse Rate 83 75 75 Respiratory Rate 24 21 19 Blood Pressure 194/87 H 210/90 H 207/84 H Pulse Oximetry 94 95 96 02/06/22 14:00 02/06/22 14:10 02/06/22 14:12 Temperature Pulse Rate 73 68 68 Respiratory Rate 21 21 Blood Pressure 191/87 H 182/85 H 182/85 H Pulse Oximetry 95 95 02/06/22 14:18 02/06/22 14:20 Temperature Pulse Rate 71 72 Respiratory Rate 21 22 Blood Pressure 162/74 H 139/65 Pulse Oximetry 94 93 MDM - GI Bleed Lab Data Result diagrams: 02/06/22 12:30 02/06/22 12:30 Labs: Lab Results 02/06/22 02/06/22 02/06/22 Range/Units 11:40 12:30 12:30 WBC 10.5 (4.5-11.0) X10^3/uL RBC 4.87 (4.0-5.2) X10^6/uL Hgb 14.5 (12.0-16.0) g/dL Hct 43.5 (36-46) % MCV 89.4 (80-100) fL MCH 29.7 (26-34) PG MCHC 33.2 (30-36) % RDW 13.9 (11.6-14.8) % Plt Count 262 (150-400) X10^3/uL Neut % (Auto) 62.7 (50-75) % Lymph % (Auto) 26.7 (25-40) % [place] % (Auto) 8.5 (3-14) % Eos % (Auto) 1.1 L (2-4) % Baso % (Auto) 1.0 (0-2) % Neut # (Auto) 6600 (2396-2540) /uL Lymph # (Auto) 2800 (4721-5132) /uL [place] # (Auto) 900 (0-900) /uL Eos # (Auto) 100 (0-450) /uL Baso # (Auto) 100 (0-100) /uL PT (10.1-12.7) SECONDS INR (0.9-1.3) APTT (26.4-36.2) SECONDS Sodium 141 (137-145) mmol/L Potassium 3.6 (3.4-5.1) mmol/L Chloride 106 (98-107) mmol/L Carbon Dioxide 29 (22-32) mmol/L BUN 12 (7-17) mg/dL Creatinine 0.92 (0.52-1.04) mg/dL Estimated GFR > 60.0 (>60) mL/min BUN/Creatinine Ratio 13.0 (6-22) Glucose 102 (80-110) mg/dL Lactate (0.7-2.1) mmol/L Calcium 9.1 (8.4-10.2) mg/dL Total Bilirubin 0.4 (0.2-1.3) mg/dL AST 25 (14-36) IU/L ALT 19 (<35) IU/L Alkaline Phosphatase 73 (38-126) U/L Total Creatine Kinase (30-135) U/L CK-MB (CK-2) CK-MB (CK-2) Rel Index Troponin I (0.01-0.034) ng/mL Total Protein 7.5 (6.3-8.2) g/dL Albumin 4.0 (3.5-5.0) g/dL Globulin 3.5 (1.7-4.1) g/dL Albumin/Globulin Ratio 1.1 (1.0-2.8) Urine Color Yellow Urine Appearance Clear Urine pH 5.5 (4.5-8.0) Ur Specific [place] <=1.005 (1.000-1.035) Urine Protein Negative (Negative) Urine Glucose (UA) Negative (Negative) g/dL Urine Ketones Negative (NEGATIVE) Urine Occult Blood 3+ H (Negative) Urine Nitrate Negative (Negative) Urine Bilirubin Negative (NEGATIVE) Urine Urobilinogen 0.2 (0.2) E.U./dL Ur Leukocyte Esterase 1+ H (NEGATIVE) Urine RBC 1-5/hpf (0-5/HPF) Urine WBC 1-5/hpf (0-5/HPF) Ur Squamous Epith Cells 0-1 /hpf (0-5/HPF) Urine Bacteria Few (2-10) H (None) Ur Culture Indicated? Specimen cultured Blood Type Antibody Screen 02/06/22 02/06/22 02/06/22 Range/Units 12:30 12:30 12:30 WBC (4.5-11.0) X10^3/uL RBC (4.0-5.2) X10^6/uL Hgb (12.0-16.0) g/dL Hct (36-46) % MCV (80-100) fL MCH (26-34) PG MCHC (30-36) % RDW (11.6-14.8) % Plt Count (150-400) X10^3/uL Neut % (Auto) (50-75) % Lymph % (Auto) (25-40) % [place] % (Auto) (3-14) % Eos % (Auto) (2-4) % Baso % (Auto) (0-2) % Neut # (Auto) (7587-7046) /uL Lymph # (Auto) (2407-5833) /uL [place] # (Auto) (0-900) /uL Eos # (Auto) (0-450) /uL Baso # (Auto) (0-100) /uL PT 11.2 (10.1-12.7) SECONDS INR 1.0 (0.9-1.3) APTT 27 (26.4-36.2) SECONDS Sodium (137-145) mmol/L Potassium (3.4-5.1) mmol/L Chloride (98-107) mmol/L Carbon Dioxide (22-32) mmol/L BUN (7-17) mg/dL Creatinine (0.52-1.04) mg/dL Estimated GFR (>60) mL/min BUN/Creatinine Ratio (6-22) Glucose (80-110) mg/dL Lactate 1.7 (0.7-2.1) mmol/L Calcium (8.4-10.2) mg/dL Total Bilirubin (0.2-1.3) mg/dL AST (14-36) IU/L ALT (<35) IU/L Alkaline Phosphatase (38-126) U/L Total Creatine Kinase (30-135) U/L CK-MB (CK-2) CK-MB (CK-2) Rel Index Troponin I (0.01-0.034) ng/mL Total Protein (6.3-8.2) g/dL Albumin (3.5-5.0) g/dL Globulin (1.7-4.1) g/dL Albumin/Globulin Ratio (1.0-2.8) Urine Color Urine Appearance Urine pH (4.5-8.0) Ur Specific [place] (1.000-1.035) Urine Protein (Negative) Urine Glucose (UA) (Negative) g/dL Urine Ketones (NEGATIVE) Urine Occult Blood (Negative) Urine Nitrate (Negative) Urine Bilirubin (NEGATIVE) Urine Urobilinogen (0.2) E.U./dL Ur Leukocyte Esterase (NEGATIVE) Urine RBC (0-5/HPF) Urine WBC (0-5/HPF) Ur Squamous Epith Cells (0-5/HPF) Urine Bacteria (None) Ur Culture Indicated? Blood Type O Positive Antibody Screen Negative 02/06/22 Range/Units 12:30 WBC (4.5-11.0) X10^3/uL RBC (4.0-5.2) X10^6/uL Hgb (12.0-16.0) g/dL Hct (36-46) % MCV (80-100) fL MCH (26-34) PG MCHC (30-36) % RDW (11.6-14.8) % Plt Count (150-400) X10^3/uL Neut % (Auto) (50-75) % Lymph % (Auto) (25-40) % [place] % (Auto) (3-14) % Eos % (Auto) (2-4) % Baso % (Auto) (0-2) % Neut # (Auto) (4544-4724) /uL Lymph # (Auto) (4587-4839) /uL [place] # (Auto) (0-900) /uL Eos # (Auto) (0-450) /uL Baso # (Auto) (0-100) /uL PT (10.1-12.7) SECONDS INR (0.9-1.3) APTT (26.4-36.2) SECONDS Sodium (137-145) mmol/L Potassium (3.4-5.1) mmol/L Chloride (98-107) mmol/L Carbon Dioxide (22-32) mmol/L BUN (7-17) mg/dL Creatinine (0.52-1.04) mg/dL Estimated GFR (>60) mL/min BUN/Creatinine Ratio (6-22) Glucose (80-110) mg/dL Lactate (0.7-2.1) mmol/L Calcium (8.4-10.2) mg/dL Total Bilirubin (0.2-1.3) mg/dL AST (14-36) IU/L ALT (<35) IU/L Alkaline Phosphatase (38-126) U/L Total Creatine Kinase 28 L (30-135) U/L CK-MB (CK-2) TNP CK-MB (CK-2) Rel Index TNP Troponin I < 0.012 (0.01-0.034) ng/mL Total Protein (6.3-8.2) g/dL Albumin (3.5-5.0) g/dL Globulin (1.7-4.1) g/dL Albumin/Globulin Ratio (1.0-2.8) Urine Color Urine Appearance Urine pH (4.5-8.0) Ur Specific [place] (1.000-1.035) Urine Protein (Negative) Urine Glucose (UA) (Negative) g/dL Urine Ketones (NEGATIVE) Urine Occult Blood (Negative) Urine Nitrate (Negative) Urine Bilirubin (NEGATIVE) Urine Urobilinogen (0.2) E.U./dL Ur Leukocyte Esterase (NEGATIVE) Urine RBC (0-5/HPF) Urine WBC (0-5/HPF) Ur Squamous Epith Cells (0-5/HPF) Urine Bacteria (None) Ur Culture Indicated? Blood Type Antibody Screen Imaging Data CT scan - abdomen/pelvis: Radiologist's Impression: PROCEDURE:? CT ABDOMEN PELVIS W CON ? INDICATIONS:? ab pain with rectal bleeding ? TECHNIQUE:? After the administration of intravenous contrast, axial sections acquired from the lung bases to the pubic symphysis.? Coronal and sagittal reformats were performed.? For radiation dose reduction, the following was used:? automated exposure control, adjustment of mA and/or kV according to patient size.? ? COMPARISON:? Outside Film, CT, CT CHEST ABDOMEN PELVIS WITH CONTRAST, 01/19/2020, 13:29. ? FINDINGS:? Image quality:? Excellent.? ? Lung bases:? Unremarkable. Heart:? No significant findings. ? ABDOMEN: Liver:? Surface nodularity of the liver suggests possible cirrhotic change. Gallbladder:? Unremarkable.? ? Biliary ducts:? Unremarkable.? ? Pancreas:? Unremarkable.? ? Spleen:? Unremarkable.? ? Adrenal Glands:? Unremarkable.? ? Kidneys and Ureters:? 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 Left kidney and ureter are unremarkable.? No masses or stones or hydronephrosis. There is focal luminal narrowing and wall thickening at the level of the distal sigmoid/rectosigmoid junction.? Consider peristalsis versus a constricting colonic lesion.? Peritoneum:? No abnormal intraperitoneal fluid.? No free air.? ? Ventral Wall: ? No hernias.? Abdominal Nodes:? No retroperitoneal or mesenteric adenopathy by size criteria.? Vessels:? Aorta and inferior vena cava are normal in size.? Extensive atherosclerotic calcifications.? Probable hemodynamically significant bilateral common iliac stenotic disease.? ? PELVIS: Pelvic Organs:? Unremarkable.? ? Bladder:? Unremarkable.? ? Pelvic Nodes: No enlarged lymph nodes.? Miscellaneous:? Bilateral fat containing inguinal hernias. ? Bones:? Lumbar degenerative change.? No lytic or blastic bony lesions.? No compression fractures. Severe canal stenosis and left foraminal stenosis at L4-L5. ? ? IMPRESSION:? ? 1. Question distal sigmoid/rectosigmoid peristalsis versus constricting lesion.? Recommend direct visualization utilizing colonoscopy if this has not been performed in the recent past. ? 2. Question cirrhotic change in the liver. ? 3. Incidental note made of severe canal stenosis and left foraminal stenosis at L4-L5. ? 4. Congenitally atrophied nonfunctional right kidney. ? 5. Significant peripheral vascular disease with probable bilateral hemodynamically significant common iliac artery stenosis.? ? Dictated by: Juan Francisco Meléndez M.D. on 02/06/2022 at 13:59 ? ? [facility] Narrative Medical decision making narrative: Patient is complaining of rectal bleeding she is found have a hemorrhoid. She is hemodynamically stable in fact she is hypertensive. Hemoglobin hematocrit are within normal limits. CT does show possible mass versus peristalsis. Patient reports that she has had thin bowel movements non bloody. She will need a colonoscopy. I initially discussed with Dr. Casper about a colonoscopy however patient has a GI doctor who has been urging her to get a colonoscopy and that she has been putting off. His patient states she would rather call her GI doctor and have an urgent colonoscopy. She is unsure of the name so I am unable to contact them. Patient also is found have a UTI, but is not septic. Discharge Plan Departure Patient Disposition: Home Clinical Impression: HTN (hypertension), Hemorrhoid, Painless rectal bleeding, Acute UTI Instructions: Colon Cancer, DI for Hemorrhoids Activity Restrictions/Additional Instructions: *You have been diagnosed with high blood pressure, bladder infection, possible rectal mass and femoral *What to do: -It is very important that he get a colonoscopy as soon as possible. Please call your GI/liver doctor today or tomorrow to schedule a colonoscopy for a possible rectal mass. Expect to have some bleeding probably from hour hemorrhoids, but may also be from polyp. If you should have significantly more bleeding, feeling up toilet bowls, or large amounts of blood 1 cup or more or large blood clots please return to emergency department. -Please check your blood pressure once daily and record it. Her blood pressure was noted to be elevated here in the emergency department. You may need medication for this. Discussed this with her primary care provider. *Continue to take medications as directed Anusol suppository at bedtime for hemorrhoid Macrobid 1 tab twice a day for 5 days MiraLax daily to help prevent constipation if you have significant diarrhea then stop Metamucil once daily to help prevent constipation if having diarrhea then stop *Follow up with your primary care provider in 2-3 days or call [phone] *Return to ER if you should have increasing rectal bleeding, worsening abdominal pain, blood pressure greater than 190/100, any new, worsening or concerning symptoms Prescriptions: New hydrocortisone acetate [Anusol-HC] 25 mg suppository 25 mg IN BEDTIME Qty: 12 0RF nitrofurantoin monohyd/m-cryst [Macrobid] 100 mg capsule 100 mg PO Q12H 5 Days Qty: 10 0RF Rx Instructions: must administer with a meal/food No Action levothyroxine 88 mcg tablet 88 mcg PO DAILY Qty: 14 0RF cholecalciferol (vitamin D3) [Vitamin D3] 50 mcg (2,000 unit) Capsule 50 mcg PO DAILY 0RF simvastatin [Zocor] 20 mg tablet 5 mg PO BEDTIME 0RF hydroxychloroquine 200 mg tablet 200 mg PO BID 0RF prednisone 5 mg tablet 10 mg PO DAILY 0RF betamethasone, augmented 0.05 % ointment 1 applic topical DAILY [id number] Referrals: Andrez Pickens MD [Primary Care Provider] -
--- NOTE | 2022-02-06 13:16 | DI.CT.S_ITS ---
PROCEDURE: CT ABDOMEN PELVIS W CON INDICATIONS: ab pain with rectal bleeding TECHNIQUE: After the administration of intravenous contrast, axial sections acquired from the lung bases to the pubic symphysis. Coronal and sagittal reformats were performed. For radiation dose reduction, the following was used: automated exposure control, adjustment of mA and/or kV according to patient size. COMPARISON: Outside Film, CT, CT CHEST ABDOMEN PELVIS WITH CONTRAST, 01/19/2020, 13:29. FINDINGS: Image quality: Excellent. Lung bases: Unremarkable. Heart: No significant findings. ABDOMEN: Liver: Surface nodularity of the liver suggests possible cirrhotic change. Gallbladder: Unremarkable. Biliary ducts: Unremarkable. Pancreas: Unremarkable. Spleen: Unremarkable. Adrenal Glands: Unremarkable. 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 Left kidney and ureter are unremarkable. No masses or stones or hydronephrosis. There is focal luminal narrowing and wall thickening at the level of the distal sigmoid/rectosigmoid junction. Consider peristalsis versus a constricting colonic lesion. Peritoneum: No abnormal intraperitoneal fluid. No free air. Ventral Wall: No hernias. Abdominal Nodes: No retroperitoneal or mesenteric adenopathy by size criteria. Vessels: Aorta and inferior vena cava are normal in size. Extensive atherosclerotic calcifications. Probable hemodynamically significant bilateral common iliac stenotic disease. PELVIS: Pelvic Organs: Unremarkable. Bladder: Unremarkable. Pelvic Nodes: No enlarged lymph nodes. Miscellaneous: Bilateral fat containing inguinal hernias. Bones: Lumbar degenerative change. No lytic or blastic bony lesions. No compression fractures. Severe canal stenosis and left foraminal stenosis at L4-L5. IMPRESSION: 1. Question distal sigmoid/rectosigmoid peristalsis versus constricting lesion. Recommend direct visualization utilizing colonoscopy if this has not been performed in the recent past. 2. Question cirrhotic change in the liver. 3. Incidental note made of severe canal stenosis and left foraminal stenosis at L4-L5. 4. Congenitally atrophied nonfunctional right kidney. 5. Significant peripheral vascular disease with probable bilateral hemodynamically significant common iliac artery stenosis. Dictated by: Juan Francisco Meléndez M.D. on 02/06/2022 at 13:59 Approved by: Juan Francisco Meléndez M.D. on 02/06/2022 at 14:05
[2022-02-06 13:32] LABS: Creatine Kinase 28 U/L (30-135)
[2022-02-06 13:45] LABS: Troponin I < 0.012 ng/mL (0.01-0.034)
[2022-02-06] MEDS: LABETALOL 20 MG/4 ML SYRINGE 10 MG IV (14:10)
== END 2022-02-06 15:22 | disposition home or self-care (01) ==
PROVIDERS: Emergency Provider Emergency Medicine; PCP Family Medicine
DX: I10 Essential (primary) hypertension (principal); K64.9 Unspecified hemorrhoids; K62.5 Hemorrhage of anus and rectum; N39.0 Urinary tract infection, site not specified; Z87.891 Personal history of nicotine dependence
CPT/HCPCS: 36415; 74177; 80053; 81001; 82550; 83605; 84484; 85025; 85610; 85730; 86850; 86900; 86901; 87086; 93005; 93010; 96374; 96375; 99284; C9113; Q9967

== ENCOUNTER → 2022-02-10 07:58 | Outpatient (CLI) | payer MEDICARE, MEDICAID, SELFPAY ==
[2022-02-10 19:41] LABS: COVID-19 CEPHEID PCR (VTM/NP) Negative (Negative)
== END ==
PROVIDERS: PCP Family Medicine; Visit Provider Family Medicine
DX: Z20.822 Contact with and (suspected) exposure to COVID-19 (principal)
CPT/HCPCS: C9803; U0003; U0005

== ENCOUNTER → 2022-02-21 08:22 | Outpatient (CLI) | payer MEDICARE, MEDICAID, SELFPAY ==
[2022-02-21 21:16] LABS: COVID19 - ORCAS (NP or Nasal) Negative (Negative)
== END ==
PROVIDERS: PCP Family Medicine; Visit Provider Family Medicine
DX: Z20.822 Contact with and (suspected) exposure to COVID-19 (principal)
CPT/HCPCS: C9803; U0003

== ENCOUNTER → 2025-07-07 11:34 | Outpatient (CLI) | payer MEDICARE, MEDICAID, SELFPAY ==
--- NOTE | 2025-07-07 11:36 | DI.RAD.S_ITS ---
PROCEDURE: XR DEXA AXIAL SKELETON INDICATIONS: Screenings COMPARISON: None. FINDINGS: Lumbar Spine: Bone mineral density 0.854 g/cm2, T score -1.8, decreased by 6% compared to prior exam in 2019. . Left Femoral Neck: Bone mineral density 0.282 g/cm2, T score -3.3. Left Hip: Bone mineral density 0.481 g/cm2, T score -3.8, decreased by 44.1% compared to 2019. Fracture Risk Calculation (when applicable): 10-year fracture risk of a major osteoporotic fracture 52 percent and of a hip fracture 37 percent. (T score greater or equal to -1.0 to: NORMAL) (T score from -1.1 to -2.4: OSTEOPENIA) (T score less than or equal to -2.5: OSTEOPOROSIS) IMPRESSION: Osteoporosis, please note that bone mineral density in the lumbar spine is artificially increased secondary to vascular calcifications. Follow-up guidelines as follows: Osteoporosis: Consider a repeat DEXA and Vertebral Fracture Assessment (VFA) exam in 2 years or sooner if medically necessary, to reassess this patient's status. Osteopenia: Consider a repeat DEXA in 2-3 years to reassess this patient's status, or if there is a new clinical indication. Normal: Consider a repeat DEXA in 5 years or sooner, or if there is a new clinical indication. All treatment decisions require clinical judgment and consideration of individual patient factors, including patient preferences, comorbidities, previous drug use, risk factors not captured in the FRAX model (e.g., frailty, falls, vitamin D deficiency, increased bone turnover, interval significant decline in bone density ) and possible under- or over-estimation of fracture risk by FRAX. In addition, the NOF Guide recommends that FDA-approved medical therapies be considered in postmenopausal women and men age >= 50 years with a: * Hip or vertebral (clinical or morphometric) fracture * T-score of <=-2.5 at the spine or hip * Ten-year fracture probability by FRAX of >= 3% for hip fracture or >=20% for major osteoporotic fracture. Dictated by: Andrew Aguilar M.D. on 07/07/2025 at 13:38 Approved by: Andrew Aguilar M.D. on 07/07/2025 at 13:46
--- NOTE | 2025-07-07 11:36 | DI.MG.S_ITS ---
MM screening mammo BI: 07/07/2025. BI-RADS: 1 CLINICAL: 74-year old female for bilateral screening mammogram. Tyrer-Cuzick lifetime risk of 4.7%. Current reported family history of breast cancer: mother and sister. History of ovarian cancer in one first-degree relative. PRIOR EXAMS 10/07/2021, 07/11/2019. MAMMOGRAPHY TECHNIQUE: 2D and 3D (tomosynthesis) digital mammographic views obtained, with additional images as needed for full coverage. Current study was also evaluated with a Computer Aided Detection (CAD) system. DENSITY B. There are scattered areas of fibroglandular density. MAMMOGRAPHY FINDINGS Bilateral: No suspicious mass, asymmetry, microcalcification, or other abnormality seen. IMPRESSION: * No evidence of malignancy. RECOMMENDATIONS Bilateral * Annual screening mammography. OVERALL ASSESSMENT CATEGORY BI-RADS-1: Negative. The [employer] recommends annual screening mammography beginning at age 40 for women with average risk of breast cancer. ELECTRONICALLY SIGNED: Tawana Cooper M.D. on 07/07/2025 at 10:34:18 PM PT Interpreting Station ID: [id number]
== END ==
LOC: MAMMO 11:36
PROVIDERS: PCP Family Medicine; Referring Provider Family Medicine; Visit Provider Family Medicine
DX: Z12.31 Encounter for screening mammogram for malignant neoplasm of breast (principal); M81.0 Age-related osteoporosis without current pathological fracture; Z80.3 Family history of malignant neoplasm of breast; Z80.41 Family history of malignant neoplasm of ovary
CPT/HCPCS: 77063; 77067; 77080